=== PATIENT | female | born 1970 | race Caucasian/White ===

== ENCOUNTER 2017-03-06 21:18 | Emergency (ER) | payer OTHER ==
[~2017-03-06 21:18] MED LIST: ABILIFY 5MG5 MG PO; AURALGAN 14 ML14 ML OTIC; CELEXA40 MG PO; CITALOPRAM HYDR20 MG PO; CLONAZEPAM1 MG PO; FENOFIBRATE145 MG PO; HYCET 325 MG/1473 ML PO; IBU600 MG PO; IBUPROFEN400 MG PO; LEADER MELATONIN5 MG PO; LEVOTHROID0.125 MG PO; LEVOTHYROXIN0.125 MG PO; LISINOPRIL40 MG PO; LOVENOX 4040 MG/0.4 SC; MEDROL DOSEPAK1 PAC PO; NORCO 325 MG-101 TAB PO; ONE DAILY1 TAB PO; PERCOCET 325 MG1 TA2 PO; PHENERGAN25 M1 PO; PROTONIX 40MG T40 MG PO; TRAZODONE50 MG PO; TRICOR 145 MG145 MG PO; VESICARE 10MG10 MG PO; ZITHROMAX Z-PA250 M1 PO; ZOFRAN4 M1 PO
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
[2017-03-06] MEDS ORDERED: IBUPROFEN600 M1 PO (23:27)
[2017-03-06] MEDS ORDERED: BACLOFEN10 M1 PO (23:27)
[2017-03-06] MEDS ORDERED: ZOFRAN ODT4 M1 SL (23:27)
[2017-03-06] MEDS ORDERED: PERCOCET 5-3251 EACH PO (23:27)
[2017-03-06 23:47] VITALS: BP 138/72
== END 2017-03-07 00:18 ==
LOC: ERH 21:18
DX: S09.90XA Unspecified injury of head, initial encounter (principal); S16.1XXA Strain of muscle, fascia and tendon at neck level, initial encounter; V89.2XXA Person injured in unspecified motor-vehicle accident, traffic, initial encounter; Y93.9 Activity, unspecified; Y92.9 Unspecified place or not applicable
CPT/HCPCS: J3101